=== PATIENT | male | born 1955 | race African-American/Black ===

== ENCOUNTER 2016-08-24 21:03 | Emergency (ER) | payer MEDICAID ==
[~2016-08-24] VITALS: Ht 180.3 cm; Wt 159.0 kg
[2016-08-24 21:05] VITALS: BP 175/89
== END 2016-08-24 21:40 | disposition left against medical advice (07) ==
LOC: ER 21:04
DX: Z04.3 Encounter for examination and observation following other accident (principal); Z53.21 Procedure and treatment not carried out due to patient leaving prior to being seen by health care provider